=== PATIENT | female | born 1995 | race Caucasian/White ===

== ENCOUNTER 2016-11-16 18:20 | Emergency (ER) | payer SELFPAY ==
[2016-11-16 18:59] VITALS: PULSE 87; RESP 16; TEMP 98.3; O2SAT 99
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
[2016-11-16 20:35] VITALS: BP 115/61
== END 2016-11-16 20:16 | disposition home or self-care (01) ==
LOC: H.ER 18:20
DX: F43.10 Post-traumatic stress disorder, unspecified (principal)